=== PATIENT | male | born 1985 | race Caucasian/White ===

== ENCOUNTER 2020-12-10 20:53 | Emergency (ER) | payer SELFPAY ==
--- NOTE | 2020-12-10 21:28 | ED Physician Documentation ---
PD HPI OPHTHO - Stated complaint Stated Complaint: RT EYE INJURY - Chief complaint Chief Complaint: Heent - History obtained from History obtained from: Patient - Additional information Additional information: Trip and fall over his dog last night around 1:30 AM hitting a coffee table with his right eye. Cannot see out of the eye at all. No other injuries. Review of Systems Constitutional: reports: Reviewed and negative Throat: reports: Reviewed and negative Cardiac: reports: Reviewed and negative PD PAST MEDICAL HISTORY - Allergies Allergies/Adverse Reactions: Allergies Allergy/AdvReac Type Severity Reaction Status Date / Time No Known Drug Allergies Allergy Verified 12/10/20 20:57 PD ED PE NORMAL - Vitals Vital signs reviewed: Yes - General General: Alert and oriented X 3, No acute distress - HEENT HEENT: Ears normal, Other (There is an abrasion over the nasal bridge but no tenderness of that or the orbital rim. He has a fairly dense hyphema on the right. No fluorescein uptake,positive Mateus sign.) - Neck Neck: Supple, no meningeal sign, No bony TTP - Neuro Neuro: Alert and oriented X 3, No motor deficit, No sensory deficit, Normal speech Results - Vitals Vitals: Vital Signs - 24 hr 12/10/20 20:57 Temperature 36.5 C Heart Rate 120 H Respiratory 16 Rate Blood Pressure 138/89 H O2 Saturation 100 Oxygen O2 Source Room air PD MEDICAL DECISION MAKING - ED course ED course: Tonometry on the right is 19. Note made the only steroid eyedrop we have in-house looks like TobraDex. He has a grade 2 hyphema, no evidence of open globe. The pupil is round, not asymmetric, visual acuity is poor though. He can read fingers within a couple of feet but could not read anything on the eye chart. Departure - Departure Disposition: 01 Home, Self Care Clinical Impression: Hyphema of right eye Condition: Good Record reviewed to determine appropriate education?: Yes Instructions: ED Eye Injury Hyphema Follow-Up: Mele Pollock MD [Provider Admit Priv/Credential] - Comments: Want to stay upright, sleep sitting up in a chair or recliner, but upright is much as possible. Do not do things where the eyes active such as reading. If you have pain you can take Tylenol, [employer] avoid ibuprofen/Motrin/aspirin/Aleve. Follow-up with Dr. Pollock tomorrow, call his office first thing during business hours. Return for new or worsening symptoms. Forms: Activity restrictions
[2020-12-10] MEDS ORDERED: prednisoLONE 1% OPHTH DROPS 75 DROPS/5 ML BOTTLE RIGHTEYE STA (21:36)
[2020-12-10] MEDS ORDERED: TOBRAM/DEXAMETH OPHTH DROPS 2.5 ML RIGHTEYE STA (21:41)
[2020-12-10 22:23] VITALS: BP 131/76
== END 2020-12-10 22:23 | disposition home or self-care (01) ==
LOC: ED 20:53
DX: S05.11XA Contusion of eyeball and orbital tissues, right eye, initial encounter (principal); S00.31XA Abrasion of nose, initial encounter; W01.190A Fall on same level from slipping, tripping and stumbling with subsequent striking against furniture, initial encounter
CPT/HCPCS: 99282; 99283; A9270